=== PATIENT | female | born 1960 | race Two or more races ===

== ENCOUNTER 2019-05-26 17:04 | Emergency (ER) | payer OTHER ==
[~2019-05-26] VITALS: Ht 160 cm; Wt 82.0 kg
[2019-05-26] MEDS ORDERED: IBUPROFEN 600MG TABLET PO STA (19:17)
[2019-05-26] MEDS ORDERED: BACITRACIN ZINC OINT UDPKT TOP ONE (20:45)
[2019-05-26 21:06] VITALS: BP 165/87
== END 2019-05-26 21:07 | disposition home or self-care (01) ==
LOC: ER 17:04
DX: S50.812A Abrasion of left forearm, initial encounter (principal); S50.811A Abrasion of right forearm, initial encounter; S80.212A Abrasion, left knee, initial encounter; S80.211A Abrasion, right knee, initial encounter; R07.9 Chest pain, unspecified; J45.909 Unspecified asthma, uncomplicated; V47.5XXA Car driver injured in collision with fixed or stationary object in traffic accident, initial encounter; Y93.89 Activity, other specified; Y92.488 Other paved roadways as the place of occurrence of the external cause
CPT/HCPCS: 71045; 73090; 73562; 99283